=== PATIENT | female | born 1955 | race Caucasian/White ===

== ENCOUNTER 2023-11-13 08:00 | Outpatient (CLI) | payer MEDICARE, MEDICAID ==
--- NOTE | 2023-11-13 13:01 | XRAY Report ---
Shoulder 2+V RT HISTORY: 68 years of age, RIGHT SHOULDER PAIN TECHNIQUE: Shoulder 2+V RT COMPARISON: None. FINDINGS/IMPRESSION: The acromioclavicular joint is unremarkable. Downsloping of the acromion. Severe degenerative changes of the glenohumeral joint. Flattening of the humeral head, which may be degenerative or secondary to prior avascular necrosis. No acute fracture or dislocation. Reviewed by: Melanie Dubois MD on 11/13/2023 1:00 PM PDT Approved by: Melanie Dubois MD on 11/13/2023 1:00 PM PDT Station ID: [id number]
== END 2023-11-13 23:59 | disposition home or self-care (01) ==
LOC: DI.S 08:00
PROVIDERS: ATTEND Registered Nurse
DX: M19.011 Primary osteoarthritis, right shoulder (principal)